=== PATIENT | male | born 1965 | race Caucasian/White ===

== ENCOUNTER 2019-06-03 13:17 | Emergency (ER) | payer BC, SELFPAY ==
[2019-06-03] VITALS (7 sets, daily range): BP systolic 100–150; BP diastolic 47–84; PULSE 51–72; RESP 18; TEMP 37.1; O2SAT 96–99; BMI 42.9
--- NOTE | 2019-06-03 13:30 | CT_ITS ---
STUDY: CT CERVICAL SPINE WITHOUT CONTRAST REASON FOR EXAM: Male, 54 years old. FELL 12 FT OFF ROOF, LT SIDED PAIN, HEMATURIA, STRUCK LT SIDE OF HEAD. RADIATION DOSAGE (If Supplied By Facility): CTDIvol = ( 31.54 ) mGy, DLP = ( 671.47 ) mGycm TECHNIQUE: High resolution transaxial imaging was performed without contrast material. Sagittal and coronal images were reconstructed. Individualized dose optimization techniques were used for this CT. COMPARISON: None FINDINGS: Normal craniovertebral junction. There are degenerative changes of the anterior atlantoaxial articulation. Normal odontoid process. There is straightening of the normal cervical lordosis. There is multilevel facet hypertrophy. C2-3: There is a posterior disc osteophyte. Normal central canal and intervertebral neuroforamina. C3-4: There is a posterior disc osteophyte and facet hypertrophy associated with bilateral narrowing of the intervertebral neuroforamina. C4-5: There is endplate spondylolysis. Normal central canal and intervertebral neuroforamina. C5-6: There is a posterior disc osteophyte associated with stenosis of the central canal and bilateral narrowing of the intervertebral neuroforamina. C6-7: There is a posterior disc osteophyte associated with stenosis of the central canal and bilateral narrowing of the intervertebral neuroforamina. C7-T1: There is endplate spondylolysis. Normal central canal and intervertebral neuroforamina. Normal visualized soft tissue structures. CT/Spine Cervical without Contras IMPRESSION: Multilevel degenerative changes, as described above. Electronically Signed: Nicci Vázquez MD at 14:59 EST Tel , Service support ,
--- NOTE | 2019-06-03 13:30 | CT_ITS ---
STUDY: CT BRAIN WITHOUT CONTRAST REASON FOR EXAM: Male, 54 years old. FELL 12 FT OFF ROOF, LT SIDED PAIN, HEMATURIA, STRUCK LT SIDE OF HEAD, no loss of consciousness. RADIATION DOSAGE (If Supplied By Facility): CTDIvol = ( 44.99 ) mGy, DLP = ( 829.85 ) mGycm TECHNIQUE: Transaxial CT imaging of the brain was performed without administration of intravenous contrast material. Individualized dose optimization techniques were used for this CT. COMPARISON: No relevant priors. FINDINGS: Normal soft tissue structures. Normal calvarium. Normal size ventricles and extra-axial spaces for the patient''s age. Normal white matter tracts of the cerebral hemispheres. Normal basal ganglia and thalami. Normal brainstem. Normal cerebellum. There is no intracranial hemorrhage. There are no findings of an acute ischemic infarction. There is a small rounded opacity within the right maxillary sinus that likely reflects a mucous retention cyst or polyp. CT/Brain/Head without Contrast IMPRESSION: No acute intracranial process. Electronically Signed: Nicci Vázquez MD at 14:41 EST Tel , Service support ,
--- NOTE | 2019-06-03 13:31 | RAD_ITS ---
STUDY: X-RAY CHEST REASON FOR EXAM: Male, 54 years old. TRAUMA, FALL. TECHNIQUE: Frontal and lateral views of the chest. COMPARISON: None. FINDINGS: The lungs are clear and expanded. There is no demonstrated pleural abnormality. Normal size heart. Normal mediastinum and pat. Normal visualized pulmonary arteries. Normal visualized aortic arch and descending thoracic aorta. Normal visualized thoracic spine. Normal visualized ribs, clavicles, and shoulders. There is no demonstrated abnormality of the visualized soft tissue structures of the upper abdomen. RAD/Chest PA and Lateral IMPRESSION: No acute cardiopulmonary process. Electronically Signed: Nicci Vázquez MD at 15:00 EST Tel , Service support ,
--- NOTE | 2019-06-03 13:31 | CT_ITS ---
STUDY: CT ABDOMEN AND PELVIS WITH CONTRAST REASON FOR EXAM: Male, 54 years old. FELL 12 FT OFF ROOF, LT SIDED PAIN, HEMATURIA, STRUCK LT SIDE OF HEAD, NO LOC, HX-HTN, HLD, DB RADIATION DOSAGE (If Supplied By Facility): CTDIvol = ( 17.22 ) mGy, DLP = ( 2378.52 ) mGycm TECHNIQUE: Transaxial images were obtained from the dome of the diaphragm to the symphysis pubis without oral contrast. IV 100mL Isovue-300 was administered. Sagittal and coronal images were reconstructed. Individualized dose optimization techniques were used for this CT. COMPARISON: None. FINDINGS: The visualized lung bases are unremarkable. The visualized portions of the heart are within normal limits. There is decreased attenuation of the liver consistent with steatosis. Normal gallbladder and extrahepatic biliary system. There are low-attenuation foci within the spleen associated with round high attenuation foci consistent with high attenuation foci. There is no subcapsular fluid. Normal pancreas. Normal bilateral adrenal glands. Normal right kidney. There is high attenuation left perinephric fluid consistent with a subcapsular hematoma. There is a blush of contrast within the hematoma (image 62 series 8). There is a nonobstructing 6 mm left renal calculus. Normal visualized stomach. Normal small intestine. Normal colon. The appendix is visualized and appears normal. Normal abdominal aorta. Normal inferior vena cava. Normal retroperitoneum. Normal urinary bladder. Normal abdominal wall. Normal osseous structures. CT/Abdomen/Pelvis W IV Cont ONLY IMPRESSION: Left perirenal hematoma associated with active hemorrhage. Splenic lacerations associated with intraparenchymal hematomas and no subcapsular hematoma. N.B. : The above information has been verbally conveyed by Nicci Vázquez MD to Dr. Petey Dubon MD, on 06/03/2019 15:14:11 (ET). Electronically Signed: Nicci Vázquez MD at 15:15 EST Tel , Service support ,
--- NOTE | 2019-06-03 13:32 | ED.DCSUM_ITS ---
- ER Visit Summary Date of Service: 06/03/19 Chief Complaint: Fall History of Present Illness: The patient is a 54 M who presents with left-sided chest and abdominal pain that began after a fall today. Patient states he was on a roof and was attempting to get back onto the ladder. Patient states the ladder slipped and he fell approximately 12 feet to the ground. Patient denies any head injury or loss of consciousness. Patient states he landed on his left side. Patient states he was able to ambulate after the fall. Patient states he did urinate after the fall and noted some blood in his urine. Patient describes his pain as dull. Patient states the pain is over his left chest, left abdomen, and back. EMS administered morphine which has helped with the pain. Physical Examination: Vital signs are stable. Patient is afebrile. Patient is in no acute distress. Oral mucosa is pink and moist. Neck is supple. There is no cervical spine tenderness. There is no bony crepitance or step-off. Heart was regular rate and rhythm. Lungs are clear and equal bilaterally. There is left-sided chest wall tenderness. There is no bony crepitance or step-off. Abdomen is soft. Bowel sounds are normal. There is left sided abdominal tenderness. There is left CVA tenderness. There is no rebound or guarding noted. Cranial nerves II through XII are intact. There are no focal motor or sensory deficits noted. Extremities are intact. There are no obvious deformities noted. There is no tenderness. Test Results: CBC and comprehensive metabolic profile within normal limits. PT with INR and PTT were normal. Chest x-ray was obtained and was negative. CT scan of the brain and cervical spine were obtained and were normal. CT scan of the abdomen pelvis was obtained. There is a left perirenal hematoma with active hemorrhage. There are splenic lacerations noted. These were interpreted by the radiologist. Emergency Department Course and Treatment: Patient was given IV fluids, morphine, and Zofran here. The cervical spine was cleared and the cervical collar was removed. Patient requested transfer to [facility] for trauma evaluation. Case was discussed with the emergency physician at [facility] and he accepted transfer the care of the patient. Patient will be transferred there. Patient understood and was agreeable with the plan. All questions were answered. Disposition: Transfer to [facility] Impression: 1. Left renal hematoma 2. Splenic lacerations 3. Fall from 12 feet This note was generated with [employer] dictation software. It may contain incorrect words, spelling, and punctuation that were not noted in review of the chart prior to signing ED Disposition - Plan for ED Patient: Disposition: [facility] Diagnosis: Renal hematoma, left, Splenic laceration Referrals: [facility],Out of [NON-STAFF] -
[2019-06-03] MEDS: Ondansetron 4 MG/2 ML Vial IV (13:44)
[2019-06-03] MEDS: 0.9% Normal Saline 1,000 ML 1000 ML IV (13:44)
[2019-06-03] MEDS: Morphine 4 MG/ML Syringe IV (13:46)
[2019-06-03 13:58] LABS: Absolute Lymphocyte Count 1.45 X10^3/uL (0.83-4.51); Absolute Neutrophil Count 7.8 X10^3/uL (2.0-7.7); Basophil# 0.06 X10^3/uL; Basophil% 0.6 % (0-1); Eosinophil# 0.25 X10^3/uL; Eosinophils% 2.4 % (0-5); Hematocrit 43.1 % (40-54); Hemoglobin 13.9 g/dL (13.0-16.5); Lymphocyte # 1.45 X10^3/ul (4.0); Lymphocyte % 14.1 % (19-41); Mean Corp Hgb Conc 32.3 g/dL (32-36); Mean Corpuscular Hgb 27.6 pg (27.0-32.0); Mean Corpuscular Volume 85.7 fL (80-94); Mean Platelet Vol. 10.1 fl (6.2-12.0); Monocyte# 0.71 X10^3/uL; Monocyte% 6.9 % (0-10); NRBC Flagged by Analyzer 0 % (0-5); Neutrophil # 7.78 X10^3/uL (2.7-7.7); Neutrophil % 75.5 % (47-70); Platelet Count 225 K/mm3 (150-450); RBC Distribution Width CV 13.6 % (11.6-14.6); RBC Distribution Width SD 42.3 fl (35.1-43.9); Red Blood Count 5.03 M/mm3 (4.6-6.2); White Blood Count 10.3 K/mm3 (4.4-11.0)
[2019-06-03 14:06] LABS: Prothrombin Time (Protime)PT. 13.3 SECONDS (11.7-14.9)
[2019-06-03 14:07] LABS: Partial Thromboplast Time 29.5 Seconds (24.1-36.2)
[2019-06-03 14:17] LABS: ALB/GLOB Ratio 1.2 RATIO (0.9-2.4); AST(SGOT) 22 U/L (15-37); Alanine Aminotransfer ALT/SGPT 32 U/L (16-61); Albumin, Serum 3.7 g/dL (3.2-5.0); Alkaline Phosphatase 39 U/L (45-117); Anion Gap 4 (5-15); BUN 18 mg/dL (7-18); BUN/Creat Ratio 19.5 RATIO (10-20); Calcium,Total 8.7 mg/dL (8.5-10.1); Chloride 109 mmol/L (98-107); Creatinine, Serum 0.92 mg/dL (0.70-1.30); EST Glomerular Filtration Rate 91 mL/min (>60); Est Glom Filt Rate - Afr Amer 110 mL/min (>60); Estimated Creatinine Clearance 84.76 ml/min; Globulin 3.1 g/dL (2.2-4.2); Glucose 112 mg/dL (74-106); Potassium 4.5 mmol/L (3.5-5.1); Protein, Total 6.8 g/dL (6.4-8.2); Sodium Level 140 mmol/L (136-145)
--- NOTE | 2019-06-03 15:36 | NURSING ---
CALLED [facility] ABOUT A TRANSFER. DR MONSON
--- NOTE | 2019-06-03 16:17 | NURSING ---
1600 CALLED [facility] FOR TRANSPORT. ETA IS 1 HR
== END 2019-06-03 17:10 | disposition short-term general hospital (02) ==
PROVIDERS: Emergency Provider Emergency Medicine; Family Provider Nurse Practitioner Family; PCP Nurse Practitioner Family
DX: S36.039A Unspecified laceration of spleen, initial encounter (principal); S37.012A Minor contusion of left kidney, initial encounter; W13.2XXA Fall from, out of or through roof, initial encounter; Y93.89 Activity, other specified; Y92.009 Unspecified place in unspecified non-institutional (private) residence as the place of occurrence of the external cause; Y99.8 Other external cause status
CPT/HCPCS: 70450; 71046; 72125; 74177; 80053; 85025; 85610; 85730; 96361; 96374; 96375; 99285; J7030; Q9967; J2405

== ENCOUNTER 2019-06-07 04:42 | Emergency (ER) | payer BC, SELFPAY ==
[2019-06-03 13:17] VITALS: BMI 42.9
[2019-06-07 04:43] VITALS: BP 161/94; PULSE 77; RESP 24; TEMP 36.8; O2SAT 97; BMI 42.6
--- NOTE | 2019-06-07 04:49 | CT_ITS ---
STUDY: CT ABDOMEN AND PELVIS WITH CONTRAST REASON FOR EXAM: Male, 54 years old. 06-03-2019 FELL OFF LADDER AND HAS SPLENIC AND KIDNEY LACERATION, TODAY C/O LOWER ABD PAIN, HX DIAB RADIATION DOSAGE (If Supplied By Facility): CTDIvol = ( 18.74 ) mGy, DLP = ( 1335.61 ) mGycm TECHNIQUE: Transaxial images were obtained from the dome of the diaphragm to the symphysis pubis without oral contrast. IV 100mL Isovue-300 was administered. Sagittal and coronal images were reconstructed. Individualized dose optimization techniques were used for this CT. COMPARISON: None. FINDINGS: The visualized lung bases are unremarkable. The visualized portions of the heart are within normal limits. Normal liver. Normal gallbladder and extrahepatic biliary system. There is a type IV splenic laceration with subcapsular hematoma at the inferior aspect of the spleen measures 11.5 x 2.1 cm. Normal pancreas. Normal bilateral adrenal glands. Normal right kidney. There is a subcapsular hematoma in the left kidney measures approximately 8 x 1.7 cm. There is a left kidney stone measures 5 mm in diameter without hydronephrosis. There is a small left retroperitoneal hematoma along the left psoas muscle. There is also a small intraperitoneal hemorrhage in the pelvic cul-de-sac estimated at less than 50 cc. Normal visualized stomach. Normal small intestine. Normal colon. The appendix is visualized and appears normal. Normal abdominal aorta. Normal inferior vena cava. Normal retroperitoneum. Normal urinary bladder. Normal abdominal wall. Normal osseous structures. CT/Abdomen/Pelvis W IV Cont ONLY IMPRESSION: There is a type IV splenic laceration with subcapsular hematoma at the inferior aspect of the spleen measures 11.5 x 2.1 cm. There is a subcapsular hematoma in the left kidney measures approximately 8 x 1.7 cm. There is a left kidney stone measures 5 mm in diameter without hydronephrosis. There is a small left retroperitoneal hematoma along the left psoas muscle. There is also a small intraperitoneal hemorrhage in the pelvic cul-de-sac estimated at less than 50 cc. N.B. : The above information has been verbally conveyed by Talisha Ashford to Red Tirado MD, on 06/07/2019 07:12:03 (ET). Electronically Signed: Talisha Ashford, at 7:21 EST Tel , Service support ,
--- NOTE | 2019-06-07 04:50 | ED.DCSUM_ITS ---
History of Present Illness Chief Complaint: Flank Pain Informant: Patient Onset: Today Context: Gradual Onset Timing: Continuous Current Severity: Moderate Maximum Severity: Moderate Narrative: Patient is a 54-year-old male with medical history significant for recent hospitalization after trauma. The patient states he fell off a roof on the . He ended up with a spleen laceration and renal injury. The patient was transferred to [facility]. He states he was observed. He had no further bleeding. He was discharged home. He states he has been taking ibuprofen and seemed to be doing well. Today, he had some cramping pain in his back into his left lower quadrant. He thought that he was constipated. He denies any fevers or chills. He has been nauseated without vomiting. He states he is otherwise been in his normal state of health. Prior similar symptoms: Yes Recent Illness/Hospitalization: Yes Past Medical History - Allergies and Home Meds Allergies/Adverse Reactions: Allergies No Known Allergies Allergy (Verified 06/07/19 04:47) Primary Care Physician: Susie Matson NP-C [Primary Care Provider] - Prior records reviewed: Yes Past Medical History: - - Hypertension Surgical History: noncontributory Smoking Status: Former smoker Review of Systems General: Denies: Chills, Fever, Sweats Eyes: Denies: Visual changes - bilaterally, Diplopia ENT: Denies: Rhinorrhea, Sore throat Cardiovascular: Denies: Chest pain, Palpitations Respiratory: Denies: Dyspnea, Cough, Dyspnea on exertion Gastrointestinal: Reports: Nausea, Constipation. Denies: Abdominal pain, Vomiting, Diarrhea, Melena, Hematochezia Genitourinary: Denies: Dysuria, Hematuria, Frequency Musculoskeletal: Denies: Back pain, Extremity Pain Skin: Denies: Rash, Wounds Neurological: Denies: Headache, Weakness, Numbness Physical Exam Vital Signs/Narrative: Vital Signs Temp Pulse Resp BP Pulse Ox 06/07/19 04:43 98.3 F 77 24 H 161/94 H 97 Inital Vital Signs reviewed: Yes General: Well nourished, Well developed, No Acute Distress Head: Normocephalic, Atraumatic Eyes: Perrl, EOMI ENT: Moist mucous membranes, No rhinorrhea Neck: Supple, Nontender Cardiovascular: Regular rate, Regular rhythm, No murmurs Respiratory: No distress, CTA bilaterally, Chest nontender Abdomen: Soft, Nondistended, Normal bowel sounds, Tender. Negative for: Rebound tenderness, Hypoactive bowel sounds Back: Nontender, Normal Inspection Extremities: Nontender, No edema Skin: Normal color, No rash Neurological: Alert, Oriented x3, Cranial nerves II-XII grossly intact, Normal Strength, Normal Sensation Psychological: Normal affect, Normal Mood Diagnostic/Tx/Re-eval Abnormal Lab Results 06/07/19 06/07/19 06/07/19 05:05 05:20 05:20 WBC 9.0 RBC 3.84 L Hgb 10.6 L Hct 32.9 L MCV 85.7 MCH 27.6 MCHC 32.2 RDW Std Deviation 42.7 RDW Coeff of Archie 13.7 Plt Count 173 MPV 9.6 Immature Gran % (Auto) 0.600 Neut % (Auto) 77.5 H Lymph % (Auto) 11.8 L Vermillion % (Auto) 7.6 Eos % (Auto) 1.9 Baso % (Auto) 0.6 Absolute Neuts (auto) 7.0 Absolute Lymphs (auto) 1.06 Nucleated RBC % 0 Sodium 142 Potassium 4.1 Chloride 109 H Carbon Dioxide 26.0 Anion Gap 7 BUN 16 Creatinine 0.97 Estim Creat Clear Calc 80.39 Est GFR (MDRD) Af Amer 105 Est GFR (MDRD) Non-Af 87 BUN/Creatinine Ratio 16.5 Glucose 159 H Calcium 8.4 L Total Bilirubin 0.50 AST 20 ALT 38 Alkaline Phosphatase 39 L Total Protein 6.8 Albumin 3.5 Globulin 3.3 Albumin/Globulin Ratio 1.1 Urine Color Yellow Urine Clarity Sl. Cloudy Urine pH 6.0 Ur Specific Palmer 1.015 Urine Protein 30 H Urine Glucose (UA) Normal Urine Ketones 5 H Urine Occult Blood 250 H Urine Nitrite Negative Urine Bilirubin Negative Urine Urobilinogen Normal Ur Leukocyte Esterase Negative Urine RBC 25-50 SEEN Urine WBC 0 SEEN Ur Squamous Epith Cells 0-5 SEEN Urine Bacteria RARE Urine Mucus 0 SEEN - Medical Decision Making Patient presents with pain in his left lower quadrant into his left flank. He had recent splenic laceration and renal injury. His pain was colicky and almost did seem like kidney stone, but with his recent trauma I did want to rule out significant intra-abdominal process. Screening labs were obtained. He has a mild anemia, but given his recent trauma I do feel that this is within his normal limits. Urine does show evidence of blood. Patient underwent CT of the abdomen and pelvis. This shows stabilization of his prior trauma with a 5 mm stone. The patient is now pain-free. I do feel that he safe for outpatient therapy. He will be given a short course of analgesics for possible and will be discharged with outpatient urology follow-up. 1. Left-sided urolithiasis. ED Disposition - Plan for ED Patient: Instructions: KIDNEY STONE w/ Colic Prescriptions: Hydrocodone Bitart/Apap 5-325 [Kress 5MG-325MG] 1 tab PO Q6H PRN PRN 3 Days #10 tab PRN Reason: Pain Prescription Printed Ondansetron [Zofran Odt] 4 mg PO Q8H PRN PRN #10 tab PRN Reason: Nausea Prescription Printed Referrals: Susie Matson, [employer] [Primary Care Provider] -
[2019-06-07 05:23] LABS: Mucous, Urine 0 SEEN /hpf (<or=2+); White Blood Cells 0 SEEN /hpf (0-5)
[2019-06-07] MEDS: Ondansetron 4 MG/2 ML Vial IV (05:25)
[2019-06-07] MEDS: Morphine 4 MG/ML Syringe IV ×2 (05:25→06:57)
[2019-06-07] MEDS: 0.9% Normal Saline 1,000 ML 1000 ML IV (05:26)
[2019-06-07 05:28] LABS: Absolute Lymphocyte Count 1.06 X10^3/uL (0.83-4.51); Basophil# 0.05 X10^3/uL; Basophil% 0.6 % (0-1); Eosinophil# 0.17 X10^3/uL; Eosinophils% 1.9 % (0-5); Hematocrit 32.9 % (40-54); Hemoglobin 10.6 g/dL (13.0-16.5); Lymphocyte # 1.06 X10^3/ul (4.0); Lymphocyte % 11.8 % (19-41); Mean Corp Hgb Conc 32.2 g/dL (32-36); Mean Corpuscular Hgb 27.6 pg (27.0-32.0); Mean Corpuscular Volume 85.7 fL (80-94); Mean Platelet Vol. 9.6 fl (6.2-12.0); Monocyte# 0.68 X10^3/uL; Monocyte% 7.6 % (0-10); NRBC Flagged by Analyzer 0 % (0-5); Neutrophil # 6.98 X10^3/uL (2.7-7.7); Neutrophil % 77.5 % (47-70); Platelet Count 173 K/mm3 (150-450); RBC Distribution Width CV 13.7 % (11.6-14.6); RBC Distribution Width SD 42.7 fl (35.1-43.9); Red Blood Count 3.84 M/mm3 (4.6-6.2)
[2019-06-07 05:31] LABS: Color, Urine Yellow (Yellow); Glucose, Dipstick Normal (Normal); Ketone-Dipstick 5 mg/dl (Negative); Leukocyte Esterase-Dipstick Negative /ul (Negative); Nitrite-Dipstick Negative (Negative); Occult Blood-Urine 250 /ul (Negative); Protein-Dipstick 30 mg/dl (Negative); Specific Gravity, Urine 1.015 (1.002-1.030); Urine Bilirubin Dipstick Negative (Negative); Urine Clarity Sl. Cloudy (Clear); Urine Urobilinogen Normal (Normal)
[2019-06-07 05:33] LABS: Bacteria RARE /hpf (None Seen); Red Blood Cells-Urine 25-50 SEEN /hpf (0-5); Squamous Epithelial Cells - UA 0-5 SEEN /hpf (0-5)
[2019-06-07 05:44] LABS: BUN 16 mg/dL (7-18); Creatinine, Serum 0.97 mg/dL (0.70-1.30); EST Glomerular Filtration Rate 87 mL/min (>60); Estimated Creatinine Clearance 80.39 ml/min; Glucose 159 mg/dL (74-106)
[2019-06-07 05:45] LABS: ALB/GLOB Ratio 1.1 RATIO (0.9-2.4); AST(SGOT) 20 U/L (15-37); Alanine Aminotransfer ALT/SGPT 38 U/L (16-61); Albumin, Serum 3.5 g/dL (3.2-5.0); Alkaline Phosphatase 39 U/L (45-117); Anion Gap 7 (5-15); BUN/Creat Ratio 16.5 RATIO (10-20); Calcium,Total 8.4 mg/dL (8.5-10.1); Chloride 109 mmol/L (98-107); Est Glom Filt Rate - Afr Amer 105 mL/min (>60); Globulin 3.3 g/dL (2.2-4.2); Potassium 4.1 mmol/L (3.5-5.1); Protein, Total 6.8 g/dL (6.4-8.2); Sodium Level 142 mmol/L (136-145)
[2019-06-07 07:01] VITALS: BP 148/81; PULSE 61; RESP 16; O2SAT 98
--- NOTE | 2019-06-07 07:34 | ED.RN ---
IV DC'ED, CATHETER INTACT, SMALL GAUZE DRESSING PLACED. DISCHARGE INSTRUCTIONS GIVEN TO AND REVIEWED WITH PATIENT, PATIENT DENIES QUESTIONS OR CONCERNS AND VOICES UNDERSTANDING OF DISCHARGE INSTRUCTIONS. PT AMBULATES OUT OF ROOM WITHOUT DIFFICULTY.
== END 2019-06-07 07:35 | disposition home or self-care (01) ==
PROVIDERS: Emergency Provider Emergency Medicine; Family Provider Nurse Practitioner Family; PCP Nurse Practitioner Family
DX: N13.2 Hydronephrosis with renal and ureteral calculous obstruction (principal); S37.009D Unspecified injury of unspecified kidney, subsequent encounter; S36.039D Unspecified laceration of spleen, subsequent encounter; W13.2XXD Fall from, out of or through roof, subsequent encounter; I10 Essential (primary) hypertension; Z79.82 Long term (current) use of aspirin; Z79.899 Other long term (current) drug therapy; Z87.891 Personal history of nicotine dependence
CPT/HCPCS: 74177; 80053; 81001; 85025; 96361; 96374; 96375; 96376; 99285; J7030; Q9967; A4216; J2405

== ENCOUNTER 2020-01-14 17:25 | Emergency (ER) | payer BC, SELFPAY ==
[2020-01-14 17:26] VITALS: BP 139/86; PULSE 104; RESP 17; TEMP 36.6; O2SAT 97; BMI 44.9
--- NOTE | 2020-01-14 17:40 | RAD_ITS ---
STUDY: X-RAY - LEFT KNEE REASON FOR EXAM: Male, 54 years old. Pain for one week. No known injury. TECHNIQUE: 4 view(s) of the knee. COMPARISON: None. FINDINGS: Normal visualized distal femur. Normal visualized proximal tibia and fibula. Normal proximal tibiofibular articulation. There is no acute fracture, dislocation or destructive osseous pathology. There is mild degenerative arthrosis of the medial femorotibial compartment. Normal lateral femorotibial compartment. Normal patellofemoral articulation. There is no demonstrated joint effusion. The soft tissue structures are unremarkable. 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 Electronically Signed: Rik Beatty DO at 17:55 EDT Tel [phone], Service support ,
--- NOTE | 2020-01-14 18:28 | ED.VIS.LOWEX ---
History of Present Illness Chief Complaint: Lower Extremity Injury Informant: Patient Onset: Weeks - 1-2 Context: Gradual Onset Timing: Continuous Quality of Pain: Aching Location: Medial left knee as well as posteriorly Current Severity: Mild Maximum Severity: Moderate Worsened by: Walking Relieved by: Resting Associated Symptoms: Negative for: Parasthesia, Weakness, Loss of Funtion Narrative: Patient has no known injury, but has been having pain with walking in the left knee. Denies any numbness, swelling, calf pain. Sometimes has issues in the right knee as well but not nearly as bad as the left. He has been using an elastic bandage around it which helps temporarily and partially. Past Medical History - Allergies and Home Meds Allergies/Adverse Reactions: Allergies No Known Allergies Allergy (Verified 01/14/20 17:26) Primary Care Physician: Susie Matson NP-C [Primary Care Provider] - Surgical History: noncontributory Smoking Status: Never smoker Review of Systems General: Denies: Chills, Fever, Sweats Cardiovascular: Denies: Chest pain, Palpitations Respiratory: Denies: Dyspnea, Cough, Dyspnea on exertion Musculoskeletal: Reports: Extremity Pain. Denies: Neck pain, Back pain, Swelling Skin: Denies: Rash, Wounds Neurological: Denies: Weakness, Parasthesia, Numbness Physical Exam Vital Signs/Narrative: Vital Signs Temp Pulse Resp BP Pulse Ox 01/14/20 17:26 97.8 F 104 H 17 139/86 H 97 Inital Vital Signs reviewed: Yes - Extremity Exam Left Knee: Negative for: Limited ROM - Pain with full extension, and extreme flexion. Able to range fully. No effusion. No bony tenderness, except that the tibial tuberosity and the patellar ligament nearby. Extensor mechanism intact. All ligaments are stable without pain on stressing, or laxity. This includes negative Itzel and negative posterior drawer. General: Well nourished, Well developed, Obese, - - Well-appearing, NAD Head: Normocephalic, Atraumatic Skin: Normal color, No rash, No Trauma Neurological: Alert, Oriented x3, Cranial nerves II-XII grossly intact, Normal Strength, Normal Sensation Psychological: Normal affect, Normal Mood Diagnostic/Tx/Re-eval Clinical Impression(s) from Imaging Studies Knee X-Ray 01/14/20 17:40 IMPRESSION: Minimal arthrosis of the medial compartment of the knee. Electronically Signed: Rik Beatty DO at 17:55 EDT Tel [phone], Service support , - Medical Decision Making X-ray shows medial compartment arthritis that is relatively mild, may or may not be related to his pain. He is stable to follow-up with orthopedics, there is no sign of a septic arthritis here, I do not think this is gout his range of motion is excellent. He states that he had a peptic ulcer seen on scope years ago, however he has been able to eat recently without any trouble, bleeding, nausea, vomiting, or melena. I will leave him on [facility] and give him a 20-day supply, and advised that he follow-up with orthopedics for further evaluation. He is comfortable with that plan and he already has an elastic wrap. ED Disposition - Plan for ED Patient: Disposition: Home or Assisted Living Diagnosis: Left knee pain Instructions: ED Knee Pain [facility] Prescriptions: Meloxicam 7.5 mg PO DAILY PRN #20 PRN Reason: pain Prescription Printed Referrals: Susie Matson NP-C [Primary Care Provider] - Red Hernandez DO [STAFF PHYSICIAN] - (Call for appointment)
[2020-01-14 19:00] VITALS: BP 155/90; PULSE 99; RESP 19; O2SAT 94
== END 2020-01-14 19:01 | disposition home or self-care (01) ==
PROVIDERS: Emergency Provider Emergency Medicine; PCP Nurse Practitioner Family
DX: M25.562 Pain in left knee (principal)
CPT/HCPCS: 73564; 99282

== ENCOUNTER → 2023-01-25 | Outpatient (CLI) | payer OTHER, SELFPAY ==
--- NOTE | 2023-01-25 16:14 | MRI_ITS ---
STUDY: MRI RIGHT ANKLE WITHOUT CONTRAST REASON FOR EXAM: Male, 57 years old. Joint pain. TECHNIQUE: Standardized fat and water weighted pulse sequences were obtained in all 3 orthogonal planes. COMPARISON: None. FINDINGS: Normal subcutis adipose space. Posterior tibialis tendinosis with tenosynovitis (axial series 4 images 15-18). Normal flexor digitorum longus tendon. Normal flexor hallucis longus tendon. Peroneus longus and brevis tendinosis with tenosynovitis (axial series 4 images 6-15). Normal tibialis anterior tendon. Normal extensor hallucis longus tendon. Normal extensor digitorum longus tendons. Normal Achilles tendon and teno-osseous insertion. Pre-Achilles bursitis (sagittal series 10 image 11). Normal plantar fascia. Normal plantar calcaneal tubercles. Normal intrinsic muscles of the rearfoot. Normal distal tibiofibular syndesmotic ligamentous complex. Normal lateral ligamentous complex. Normal subtalar ligaments and sinus tarsi. Normal deltoid ligamentous complexes. Normal plantar calcaneonavicular (spring) ligament. Severe arthrosis of the tibiotalar joint with near complete loss of articular cartilage, subchondral cyst formation, reactive subchondral bone marrow edema and osteophytes (sagittal series 10 images 7-18). Normal talar dome. Mild arthrosis of the subtalar joint (sagittal series 10 images 14-18). Normal talonavicular articulation. Normal calcaneocuboid articulation. Normal navicular-cuneiform articulations. MRI/Lower Ext Joint Only (Routine) IMPRESSION: Posterior tibialis tendinosis with tenosynovitis. Peroneus longus and brevis tendinosis with tenosynovitis. Pre-Achilles bursitis. 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 Mild arthrosis of the subtalar joint. No other abnormality. Electronically Signed: Estevan Byrne MD at 10:18 EDT ,
== END | disposition home or self-care (01) ==
LOC: MRI 15:48
PROVIDERS: PCP Nurse Practitioner Family; Referring Provider Podiatrist; Visit Provider Podiatrist
DX: M19.071 Primary osteoarthritis, right ankle and foot (principal)
CPT/HCPCS: 73721

== ENCOUNTER 2023-04-22 10:56 | Day surgery (SDC) | payer OTHER, SELFPAY ==
[2023-04-16 09:39] LABS: Magnesium 1.8 mg/dL (1.6-2.6)
[2023-04-22] VITALS (8 sets, daily range): BP systolic 134–168; BP diastolic 78–106; PULSE 70–80; RESP 10–18; TEMP 36–36.2; O2SAT 95–99; BMI 41.2
[2023-04-22 11:42] LABS: Bedside Glucose 261 mg/dL (74-106)
[2023-04-22] MEDS: Magnesium 2 GM for ERAS IV (11:42)
[2023-04-22] MEDS: Insulin Lispro 100 UNIT/ML INSULN.PEN SC (11:42)
[2023-04-22] MEDS: Gabapentin 600 MG Tablet PO (11:50)
[2023-04-22] MEDS: Acetaminophen 500 MG Tablet 1000 MG PO (11:50)
[2023-04-22] MEDS: Lactated Ringers 1,000 ML 15 ML IV (11:55)
--- NOTE | 2023-04-22 12:10 | EKG12_ITS ---
Test Reason : PREOP Blood Pressure : / mmHG Vent. Rate : 071 BPM Atrial Rate : 071 BPM P-R Int : 176 ms QRS Dur : 086 ms QT Int : 390 ms P-R-T Axes : 065 -40 044 degrees QTc Int : 423 ms Normal sinus rhythm Left axis deviation Abnormal ECG No previous ECGs available Confirmed by JOHN ACUÑA, CHALO ([id number]), online editor DAVID PITTS ([id number]) on 05/04/2023 12:58:00 PM Referred By: Pato Leung Confirmed By:CHALO LOPEZ MD
--- NOTE | 2023-04-22 12:28 | PCM.OPRPT ---
Problems Associated Problem List Diagnoses (1) Arthritis of ankle, right: (2) Type 2 diabetes mellitus without complications: (3) Short Achilles tendon (acquired), right ankle: Report of Operation Date of Procedure: 04/22/23 Pre-Operative Diagnosis: 1. Primary osteoarthritis, ankle, right 2. Short Achilles tendon, right lower extremity 3. Diabetes mellitus without complication Post-Operative Diagnosis: 1. Primary osteoarthritis, ankle, right 2. Short Achilles tendon, right lower extremity 3. Diabetes mellitus without complication Surgery/Procedure Performed:: 1. Endoscopic gastrocnemius recession, right lower extremity 2. Ankle arthrodesis, right 3. Dysart of calcaneal bone graft, right lower extremity Description of Surgical Findings:: 1. Severe ankle arthritis when the ankle joint was exposed with sclerosis changes appreciated to the talar dome as well as tibial plafond. 2. After resection of arthritic bone there showed evidence of good bleeding subchondral bone to the right ankle. 3. Good apposition between the talus and tibia with orthopedic hardware and bone graft. Surgeon: Pato Leung dimensional integration engineer: Jose Juan Maldonado Type of Anesthesia: Block,Regional, General and Local Anesthesiologist: Duran Plaza Special Medications: Popliteal block, right lower extremity Specimen's removed: None Drains: None Estimated Blood Loss (mL): 50 mL Fluids Replaced: Per anesthesia Description of Procedure: Indications For Operation: Mr. Chappell is a 58-year-old male who was admitted to [facility] for elective surgery for right ankle fusion and gastroc recession of the right lower extremity. Patient is well-known to my office and has failed all conservative treatment and conservative care to the right ankle which is consisted of bracing, orthotics, taping and modified shoe gear. Due to the nature of the patient's deformity to the right ankle it had been deemed necessary at this time to take the patient to the operating room and perform gastroc recession with ankle arthrodesis to correct the patient's right ankle deformity and relieve him of his constant pain.. The nature of the problem, anticipated procedures, postop recovery/convalences and risk/complications include but not limited to infection, wound healing complications, hypertrophic scarring, numbness, tingling, chronic pain, CRPS, over and under correction, recurrence of deformity, DVT and or PE and the need for further surgery have been discussed in great detail with the patient. All questions have been answered to the patient's satisfaction. There are no guarantees given as to the outcome of the procedure. Description of Procedure: Under mild sedation, the patient was brought into the operating room and placed on the operating table in supine position. Once the patient was under general anesthesia with laryngeal airway mask, the right lower extremity was blocked using approximately 10 cc 0.5% Marcaine plain to the saphenous nerve and PT nerve. The patient will get a popliteal block by anesthesia in PACU after the procedure. Next, a well-padded thigh tourniquet was applied to the right lower extremity. Next, the right lower extremity was prepped and draped in normal aseptic manner. Next, a timeout was then undertaken verifying the correct patient, extremity, visibility of preoperative markings, availability of the equipment. Next, attention was directed to the lateral calcaneus. Using a Jamshidi needle, it was inserted into the lateral aspect of the calcaneus and 60 cc of bone marrow aspirate was removed and passed the back table to be mixed for bone marrow aspirate and platelet rich plasma. Incision area was flushed with copious normal saline and closed with 2-0 nylon in simple interrupted suture technique. Next, attention was directed to the right lower extremity at the level of the gastrocsoleus complex. The right ankle was stabilized in neutral position, allowing the gastrocnemius tendon to be under moderate tension. The aponeurosis was palpated and a medial incision with 15 blade was made approximately 2 cm distal from the lowest part of the gastrocnemius muscle belly. Continued blunt dissection with a hemostat was made through the deep crural fascia. The obturator was used to dissect between the the soft tissue and the gastrocnemius tendon. Once the obturator made its way through to the lateral aspect of the right lower extremity, a stab incision was made with a 15 blade and the drill sharpener operator was pushed through. The cannula was inserted followed by the Arthrex micro 0 degree scope for visualization of the gastrocnemius aponeurosis. Further evaluation showed the saphenous vein as well as the sural nerve to be well protected against the cannula and away from the operative site. Next, the hook knife was used to release the tendon from medial lateral followed by lateral to medial with visualization of complete release of the gastrocnemius tendon. The right lower extremity ankle was put through range of motion and showed to get greater than 15 degrees past neutral with the knee extended. 2 incisions were flushed with copious wili of normal saline. The skin and deep layer was reapproximated using 3-0 nylon and over over suture technique. Next, attention was directed to the right ankle. Using large C-arm fluoroscopy the ankle joint was marked out as well as the medial and lateral ankle gutters with sterile skin marker. Next, using a #15 blade a full-thickness incision down to subcutaneous tissue was made approximately 2 fingerbreadths above and below the ankle joint. Care was taken to mind the superficial nerve. Using a wet Ray-Damaris continued blunt dissection was carried through the subcutaneous layer. Retraction was applied to the deep layer and continued sharp dissection was carried down to the level of the retinaculum over the extensor hallucis longus. Next using Metzenbaum scissors blunt dissection was carried down through to the level inferomedial to the extensor hallucis longus tendon until the neurovascular structure was observed. Care was taken to retract all of the neurovascular bundle as well as the extensor hallucis longus tendon laterally. Once retraction was obtained, #15 blade was used to make the open ankle arthrotomy through the existing incision. The right ankle was exposed and showed evidence of osteophytes as well as thickened sclerotic bone to the tibial plafond and talar dome and talar neck. Rongeur was used to removed all osteophytes. A lamina finance analyst was placed in the ankle joint and care was taken to denude all of the articular cartilage to the tibial plafond as well as the talar dome, lateral gutter and medial gutter of the right ankle using combination of osteotomes and power burs.. The ankle was flushed with copious normal saline. The ankle joint was fenestrated with a 2-0 drill and fish scaled with osteotome. After preparation was complete the ankle was placed through a range of motion, no catching was noticed, as well as placed in position for final fixation which showed good apposition clinically as well as under C-arm fluoroscopy. 5 cc of ArthroCell, 10 cc of Allosync Pure DPM which was mixed with bone mineral aspirate and placed in the right ankle joint. The ankle joint was fixated in a neutral position 90 degrees to the tibia in a slight posterior fashion so that the bisection of the tibia was through the lateral process of the talus, with approximately 5 degrees of external rotation. The ankle joint was fixated temporarily with 2 large Steinmann pins followed by 6.5 mm PT HCS screws 18 mm x 40 mm, and 18 mm x 60 mm. The ankle was put through a range of motion and showed some micromotion thus the decision was made to apply a mini anterior TT fusion plate with a combination of 4.5 locking and nonlocking screws. The ankle again was put through range of motion and showed no motion at that time. The tourniquet was deflated at 120 minutes and excellent reperfusion was noticed on the operating table to the right lower extremity. All bleeders were cauterized as necessary. The deep layer was closed with 2-0 Vicryl in running locking suture technique. The retinaculum was reapproximated with 2-0 Vicryl in running locking suture technique. This subcutaneous layer was closed with 3-0 Vicryl in running suture technique. The skin was reapproximated and closed with francis. 3 cc of PRP was injected to the right ankle without incident. Right lower extremity was wiped clean and patted dry. All incisions were dressed with Betadine soaked jumpstart, dry sterile dressing and a double layer Paez AO splint was applied to the right lower extremity in a 90 degree fashion. The patient tolerated the procedure and anesthesia well and apparent satisfactory condition and was transported to the PACU for further monitoring prior to discharge home. Vital signs stable and vascular status intact to all digits bilateral. Need for skilled data entry assistant: Jose Juan Maldonado DPM was critical to the outcome of the case. During the course of the procedure the data entry assistant physician played a vital role. His intimate knowledge of my steps in the procedure aided in safe and expedient completion of the procedure. The data entry assistant surgeon played a vital role in positioning particularly in obtaining the appropriate positioning. The data entry assistant surgeon was also vital in the retraction of soft tissues during the exposure and protecting vital structures when needed. The surgeon was also vital and obtaining reduction and assisting with hardware placement throughout the case. Post Operative Plan: Weightbearing: Nonweightbearing to the right lower extremity Antibiotics: 2 g Ancef through the IV DVT Prophylaxis: Aspirin 81 mg twice daily for 30 days Pruett: None Dressing: Betadine soaked jumpstart, dry sterile dressing, 2 layer Paez AO splint X-Rays: Post-operative films taken on the operating room. Pain Medication: Percocet 5/325, Flexeril 10 mg Follow-up: 1 week postop in office with Dr. Leung Grafts/Implants Used: 1. Mini anterior TTF fusion plate. 2. 6.5 PT HCS screws 40 mm, 60mm Complications None Admit VTE Documentation VTE Present on Admission: Yes VTE Mechan Device Prophylaxis: SCD's VTE Pharm Prophylaxis ordered?: Yes
[2023-04-22] MEDS: Cefazolin 3 GM in 0.9% Normal Saline (100mL Bag) 100 ML IV (13:03)
--- NOTE | 2023-04-22 13:14 | RAD_ITS ---
CLINICAL HISTORY: PAIN Date: 04/22/2023 3:38 PM Date of : 1965 Images assigned to this order were provided in conjunction with a surgical procedure performed in the operating room/procedural suite. Please see operative report for details. Fluoroscopic images: 3 Fluoroscopic time: NA Cumulative dose: N/A, mGym2; 12.47; mGy Imaging documents plate and screw fixation and cannulated screw fixation/arthrodesis of the tibiotalar articulation there is normal alignment. No fractures noted Refer to procedural note for complete description. Impressions: 1. Fluoroscopic guidance for surgical planning and confirmation Electronically Signed: Vincent Faust MD at 20:35 EST , RAD/Ankle 2 Views IMPRESSION: undefined
[2023-04-22] MEDS: Bupivacaine Mpf 0.5% 30 ML VIAL (13:17)
[2023-04-22] MEDS: Oxycodone/Apap 5/325 Tablet PO (18:06)
[2023-04-22 18:08] LABS: Bedside Glucose 168 mg/dL (74-106)
== END 2023-04-22 18:32 | disposition home or self-care (01) ==
LOC: SDC 10:57 → AC 10:58
PROVIDERS: PCP Nurse Practitioner Family; Referring Provider Podiatrist Foot & Ankle Surgery; Visit Provider Podiatrist Foot & Ankle Surgery
PROC: (CPT 29999; principal; 2023-04-22 12:45)
DX: M19.071 Primary osteoarthritis, right ankle and foot (principal); E66.01 Morbid (severe) obesity due to excess calories; Z68.41 Body mass index [BMI] 40.0-44.9, adult; E11.9 Type 2 diabetes mellitus without complications; M67.01 Short Achilles tendon (acquired), right ankle; I10 Essential (primary) hypertension; Z79.82 Long term (current) use of aspirin; Z79.899 Other long term (current) drug therapy; Z79.84 Long term (current) use of oral hypoglycemic drugs
CPT/HCPCS: 27870; 27829; 27687; 38220; 64445; 01480; 36415; 73600; 76000; 82962; 83735; 87081; 93005; C1713; J7120; J2405

== ENCOUNTER 2024-04-13 10:49 | Day surgery (SDC) | payer OTHER, SELFPAY ==
[2024-04-13] VITALS (8 sets, daily range): BP systolic 124–158; BP diastolic 70–96; PULSE 63–80; RESP 16–18; TEMP 36.1–36.3; O2SAT 95–100; BMI 41.3
[2024-04-13] MEDS: Lactated Ringers 1,000 ML 15 ML IV (11:35)
[2024-04-13 11:55] LABS: Bedside Glucose 120 mg/dL (74-106)
[2024-04-13] MEDS: Cefazolin 3 GM in Syringe 1 EACH IV (14:04)
[2024-04-13] MEDS: Heparin 10,000 UNITS/10 ML Vial 10000 UNITS (14:36)
[2024-04-13] MEDS: Thrombin 5,000 IU Kit (PSA) 5,000 IU Vial 5000 IU TOPICAL (14:36)
[2024-04-13] MEDS: Calcium Chloride 1 GM/10 ML Syringe (14:36)
[2024-04-13] MEDS: Bupivacaine Mpf 0.5% 30 ML VIAL (14:54)
== END 2024-04-13 19:22 | disposition home or self-care (01) ==
LOC: SDC 10:50 → AC 10:52
PROVIDERS: PCP Nurse Practitioner Family; Referring Provider Podiatrist Foot & Ankle Surgery; Visit Provider Podiatrist Foot & Ankle Surgery
PROC: (CPT 27870; principal; 2024-04-13 12:15)
DX: M67.02 Short Achilles tendon (acquired), left ankle (principal); E11.42 Type 2 diabetes mellitus with diabetic polyneuropathy; M19.072 Primary osteoarthritis, left ankle and foot; I10 Essential (primary) hypertension; E61.1 Iron deficiency; E78.00 Pure hypercholesterolemia, unspecified; M10.9 Gout, unspecified; F17.220 Nicotine dependence, chewing tobacco, uncomplicated; F17.210 Nicotine dependence, cigarettes, uncomplicated; Z91.199 Patient's noncompliance with other medical treatment and regimen due to unspecified reason; Z79.82 Long term (current) use of aspirin; Z79.84 Long term (current) use of oral hypoglycemic drugs; Z79.85 Long-term (current) use of injectable non-insulin antidiabetic drugs; Z79.899 Other long term (current) drug therapy
CPT/HCPCS: 27870; 29999; 28300; 38220; 01480; 64445; 73600; 76000; 82962; C1713; J7120; J2405

== ENCOUNTER → 2024-05-15 | Outpatient (CLI) | payer OTHER, SELFPAY | END | disposition home or self-care (01) | PROVIDERS: PCP Nurse Practitioner Family; Visit Provider Podiatrist Foot & Ankle Surgery | DX: L97.529 Non-pressure chronic ulcer of other part of left foot with unspecified severity (principal) | CPT/HCPCS: 87015; 87070; 87116; 87205; 87206 ==